=== PATIENT | male | born 1975 | race Caucasian/White ===

== ENCOUNTER 2017-09-16 22:49 | Emergency (ER) | payer MEDICAID ==
--- NOTE | 2017-09-16 23:11 | EDPHY ---
General Time Seen by Provider: 09/16/17 23:01 Narrative: CHIEF COMPLAINT: Fall, facial injury HISTORY OF PRESENT ILLNESS: Patient presents with spouse with complaints of fall and facial injury. Patient 's spouse states that he was drinking alcohol this evening when he tripped and fell, landing on the corner of a counter with his face over his nose and right eye. He sustained a laceration to these areas. Moderate bleeding that stopped with pressure. He has some mild headache and pain in the right side of his face. He denies any visual disturbance. No nausea or vomiting. No neck pain or stiffness. No injury elsewhere on his person. This was a witnessed fall by the spouse who states there was no loss of consciousness. She has been with the patient the entire time since the fall. TIME OF INJURY: 1 hr prior to arrival TETANUS STATUS: Up-to-date MEDICAL/SURGICAL/SOCIAL HISTORY: Gout. Daily smoker and alcohol use. REVIEW OF SYSTEMS: Ten systems reviewed and are negative unless otherwise noted in the HPI EXAMINATION General Appearance: Alert, no distress. Well-developed well-nourished. Strong odor of alcohol HEENT: normocephalic. Lacerations as below. No Bonilla sign. There is mild proptosis of the right eye. EOMs are symmetric. No diplopia with upward outward gaze or down with upward gaze. Neck: Normal inspection. Supple nontender. No crepitus, step-off or deformity. Cardiovascular: Regular rhythm. No murmur. Respiratory: Lungs are clear in all plummer. Neurological: GCS 15. A&O, sensory symmetric, strength symmetric. No pronator drift. Normal [id number]. Skin: Warm and dry, no rash. Complex laceration of the right superior cheek and nasal bridge. Nasal bridge laceration is stellate and 2.5 cm total length with some avulsion. Apparent involvement of the medial canthus. This does tracks appear medially to the forehead. No foreign body. No pulsatile bleeding. Extremities: Nontender, no pedal edema DIFFERENTIAL DIAGNOSES: Including but not limited to concussion, closed-head injury, retrobulbar hematoma, intracranial hemorrhage, skull fracture, globe injury MDM: 11:10 p.m. Mechanical fall with complex lacerations of the face and nose. Dr. Salazar has evaluated the patient with me and recommends imaging of the head and facial bones. We will need to stain the eye and perform tonometry. He is awake alert. He does have strong odor of alcohol but is appropriate and in no acute distress. His spouse accompanies at bedside. 11:45 p.m. Notified by radiologist Dr. Foy. There are fractures on the CT scan of the facial bones including a right nasal bone fracture, inferior orbital wall depressed fracture at the inferior orbital nerve, medial orbital wall fracture depressed 5 mm. No entrapment or obvious hematoma. 11:55 p.m. I performed fluorescein exam with no uptake. Tonometer readings are 13 mm of mercury x 3. Repeat examination reveals no diplopia with EOM movement. There remains symmetric without nystagmus. I have anesthetize the nasal laceration. 12:15 a.m. Case discussed with Dr. Salazar. Re-evaluation of the wound does reveal injury to the medial canthus and superficial laceration to the right eyelid. This will require ophthalmology care. We will consult Ophthalmology. I will repair the nasal laceration 12:45 a.m. Case discussed with on-call yeast pumper Dr. Pedro. We discussed the nature location of the injury. He informs me that we will not be capable repairing the medial canthus here, and that the patient will need to be transferred to higher level of care. This was discussed in conjunction with Dr. Salazar in all are in agreement. 1:04 a.m. Case discussed with the [facility] transfer Center. First with Rg CUELLAR, who connective me to Dr. Britt, maxillofacial trauma surgeon. He has accepted the patient for ED group evaluation and treatment. I then discussed the case with the ED attending physician Dr. Harden, he also accepts the patient. There is no further imaging requested from these physicians. The patient will be transported to [facility] Emergency Department, ALS crew, [facility]. We will arrange this transportation. 1:10 a.m. I have informed the patient of all these discussions. I have repaired the nasal bridge laceration. I have ordered IV fluid resuscitation, IV Ancef 2 g. The patient has been kept NPO this emergency department did have food intake at 7:00 p.m., and has had a pt of vodka between 6:00 p.m. And 10:30 p.m.. He is awake alert no acute distress. He has no complaints of pain other than his right eye is nasal bridge. I performed tonometry and fluorescein exam. Images will be placed on a disc. PROCEDURE: Laceration repair Consent: Verbal Location: Nasal bridge Length of repair: 2.5 cm, stellate Complexity: Complex Layer involvement: Single Anesthesia: Local. 1% lidocaine plain. 5 mL Irrigation: Extensive Debridement: None Procedure description: Following good anesthesia, the wound was copiously irrigated. Wound bed was explored with a sterile glove, and there is no foreign body noted. No exposure of the nasal bone. No foreign body. No pulsatile bleeding Wound borders were approximated well with good hemostasis. Tolerated well without complication. Suture/Staple material: 6-0 Prolene, 6 simple interrupted sutures Wound care: Routine as discussed Suture/Staple removal: 5-7 Days SUPERVISION: Patient was evaluated and examined in conjunction with my secondary supervising physician as documented. We have both examined the patient. - History Smoking Status: Current every day smoker - Objective Vital Signs: Initial Vital Signs Temperature (C) 97.9 F 09/16/17 22:52 Heart Rate 95 09/16/17 22:52 Respiratory Rate 16 09/16/17 22:52 Blood Pressure 155/116 H 09/16/17 22:52 O2 Sat (%) 98 09/16/17 22:52 O2 Delivery Mode Room Air Allergies/Adverse Reactions: No Known Allergies Allergy (Unverified 01/17/16 10:20) Home Medications: Medication Instructions Recorded Colchicine 0.6 mg PO BID #30 tablet 01/17/16 Departure - Departure Disposition: Acute Care Hospital [facility] Clinical Impression: Injury of canthus of eyelid Nasal laceration Qualifiers: Encounter type: initial encounter Qualified Code(s): S01.21XA - Laceration without foreign body of nose, initial encounter Fracture of inferior orbital wall Qualifiers: Encounter type: initial encounter Fracture type: closed Laterality: right Qualified Code(s): S02.31XA - Fracture of orbital floor, right side, initial encounter for closed fracture Medial orbital wall fracture Qualifiers: Encounter type: initial encounter Fracture type: closed Qualified Code(s): S02.80XA - Fracture of other specified skull and facial bones, unspecified side , initial encounter for closed fracture Closed head injury Qualifiers: Encounter type: initial encounter Qualified Code(s): S09.90XA - Unspecified injury of head, initial encounter Condition: Good Instructions: Facial Fracture (ED), Laceration (ED), Eyelid Surgery (DC)
[2017-09-16] MEDS ORDERED: FLUORESCEIN SODIUM 1 MG STRIP OP ONE (23:13)
[2017-09-16] MEDS ORDERED: PROPARACAINE/FLUORESCEIN SOD 5 ML OPHT.BTL ONE (23:29)
[2017-09-17] MEDS ORDERED: ceFAZolin 2 GM in NS 100 ML IV ONE (01:02)
[2017-09-17] MEDS ORDERED: NS 1,000 ML IV ONE (01:02)
[2017-09-17 01:28] LABS: INR 0.88 (0.83-1.16); PROTIME(PATIENT) 12.2 SEC (12.0-15.0)
[2017-09-17 01:38] VITALS: BP 145/112
== END 2017-09-17 02:22 | disposition short-term general hospital (02) ==
PROC: 09QKXZZ Repair Nasal Mucosa and Soft Tissue, External Approach (ICD-10-PCS; principal; 2017-09-16)
DX: S02.31XA Fracture of orbital floor, right side, initial encounter for closed fracture (principal); S01.21XA Laceration without foreign body of nose, initial encounter; F17.200 Nicotine dependence, unspecified, uncomplicated; E86.9 Volume depletion, unspecified; W01.0XXA Fall on same level from slipping, tripping and stumbling without subsequent striking against object, initial encounter
CPT/HCPCS: 96374; J0690